=== PATIENT | male | born 1985 | race Caucasian/White ===

== ENCOUNTER 2016-11-25 03:04 | Emergency (ER) | payer MEDICARE | END 2016-11-25 04:37 | disposition home or self-care (01) | LOC: D.ER 03:04 | DX: S00.212A Abrasion of left eyelid and periocular area, initial encounter (principal); Y04.2XXA Assault by strike against or bumped into by another person, initial encounter; Y93.89 Activity, other specified; Y92.89 Other specified places as the place of occurrence of the external cause; S01.511A Laceration without foreign body of lip, initial encounter ==